=== PATIENT | female | born 1950 | race Hispanic/Latino ===

== ENCOUNTER 2023-07-28 08:18 | Observation (INO) | payer OTHER ==
[2023-07-23 11:38] VITALS: BP 140/71; PULSE 64; RESP 16
[2023-07-23 11:40] LABS: ALBUMIN 3.3 g/dL (3.5-5.0); BILIRUBIN,TOTAL 0.6 mg/dL (0.2-1.0); CREATININE 1.5 mg/dL (0.5-1.0); POTASSIUM 4.6 mmol/L (3.5-5.1); TOTAL PROTEIN, SERUM 8.2 g/dL (6.0-8.3)
[2023-07-28] VITALS (34 sets, daily range): BP systolic 17–145; BP diastolic 57–75; PULSE 58–88; RESP 14–19; O2SAT 94
[~2023-07-28] VITALS: Ht 154.9 cm; Wt 111.5 kg
[2023-07-28] MEDS: 0.9%NACL 1000ML 1,000 ML IV ONE
[~2023-07-28 08:18] MED LIST: AEC81 PO; ALBU6.7H14 IH; ATOR40TA69 PO; EMPA10TA PO; ESCI-8 PO; FLUT1BLS9 IH; LINA5TAB PO; LISI20TA24 PO; OXYB5TAB20 PO; SEMA1PEN3 SQ
[2023-07-28] MEDS ORDERED: FENTANYL CITRATE PF 50 MCG/1 ML 2ML VIAL ONE ×4 (09:59→12:42)
[2023-07-28] MEDS ORDERED: MIDAZOLAM HCL 1 MG/ML 2ML VIAL ONE (10:14)
[2023-07-28] MEDS: CEFAZOLIN SODIUM 2 GM VIAL ONE ×2 (10:20→18:14)
[2023-07-28] MEDS: TRANEXAMIC ACID 1000MG/10ML ONE ×2 (10:30→11:44)
[2023-07-28] MEDS: GENTAMICIN SULFATE 80 MG/2 ML VIAL ONE ×2 (10:34→11:28)
[2023-07-28] MEDS: 0.9%NACL 48.45 ML, ROPIVACAINE 0.5% 49.25ML, EPINEPH 0.5MG KETOROLAC 30MG,CLONIDINE 80MCG IV PRN (10:34)
[2023-07-28] MEDS: CEFAZOLIN SODIUM 1 GM VIAL ONE ×3 (10:34→18:14)
[2023-07-28] MEDS ORDERED: PROPOFOL 10 MG/ML 20ML VIAL IV ONE ×3 (10:55→12:43)
[2023-07-28] MEDS: MEPERIDINE-PF 25 MG/ML SYG ONE (13:57)
[2023-07-28] MEDS ORDERED: DIPHENOXYLATE HCL/ATROPINE 2.5/0.025 MG TAB PO PRN (20:30)
[2023-07-28] MEDS ORDERED: LACTULOSE 20 GM/30 ML UDCUP PO PRN (20:30)
[2023-07-28] MEDS ORDERED: BENZOCAINE/MENTH/CETYLPYRD CL 1 EACH LOZENGE MM PRN (20:30)
[2023-07-28] MEDS ORDERED: MAG/ALUM/SIMETH 30 ML UDCUP PO PRN (20:30)
[2023-07-28] MEDS ORDERED: ACETAMINOPHEN 325 MG TAB PO PRN (20:30)
[2023-07-28] MEDS ORDERED: ALBUTEROL SULFATE IH PRN (21:00)
[2023-07-28] MEDS: HYDROMORPH /0.9% NACL/PF PCA 50 ML IV PRN (22:19)
[2023-07-28] MEDS: ONDANSETRON 4MG INJ IVP PRN (22:21)
[2023-07-28] MEDS: ATORVASTATIN 40 MG TABLET PO SCH (22:21)
[2023-07-28] MEDS: WARFARIN SODIUM 5 MG TAB PO SCH (22:22)
[2023-07-28] MEDS: 0.9%NACL 1000ML 1,000 ML IV SCH (22:30)
[2023-07-29] MEDS ORDERED: POTASSIUM CHLORIDE 20MEQ/100ML 100 ML IV PRN (01:30)
[2023-07-29] MEDS ORDERED: KCL 20 MEQ ERTAB PO PRN (01:30)
[2023-07-29] MEDS ORDERED: DEXTROSE 50%-WATER 50 ML DISP.SYRIN IV PRN (01:30)
[2023-07-29] MEDS ORDERED: POTASSIUM CHLORIDE 10% ELIXIR 20 MEQ/15 ML UDCUP PO PRN (01:30)
[2023-07-29] MEDS ORDERED: GLUCAGON 1MG KIT 1 MG ML IM PRN (01:30)
[2023-07-29] MEDS ORDERED: MAGNESIUM 2GM PREMIX 50ML 50 ML IV PRN (01:30)
[2023-07-29] MEDS: CEFAZOLIN SODIUM 2 GM VIAL IVPB SCH (02:08)
[2023-07-29 03:53] VITALS: BP 150/74; PULSE 77; RESP 18
[2023-07-29 04:19] LABS: HEMATOCRIT 30.9 % (36-48); MEAN CORPUSCULAR HEMOGLOBIN 27.6 pg (27.0-33.0); MEAN CORPUSCULAR HGB CONC 30.7 g/dL (32.0-36.0); MEAN CORPUSCULAR VOLUME 89.8 fL (79-99); PLATELET COUNT (AUTO) 158 K/uL (130-400); RED BLOOD CELL COUNT(AUTO) 3.44 MIL/uL (4.00-5.50); RED CELL DISTRIBUTION WIDTH 16.1 % (11.0-15.5); WHITE BLOOD COUNT (AUTO) 6.2 K/uL (4.8-10.8)
[2023-07-29 04:28] LABS: HEMOGLOBIN A1C 6.1 % (4.0-6.0)
[2023-07-29 04:31] LABS: INR 0.94 (0.85-1.15); PROTHROMBIN TIME 11.1 SEC (9.6-11.6)
[2023-07-29 04:41] LABS: CREATININE 1.2 mg/dL (0.5-1.0); POTASSIUM 4.3 mmol/L (3.5-5.1)
[2023-07-29] MEDS: INSULIN HUMULIN R 100 UNIT/ML 3ML SQ SCH (07:30)
[2023-07-29 08:15] VITALS: BP 103/49; PULSE 76; RESP 18
[2023-07-29] MEDS: FAMOTIDINE 20MG TAB PO SCH (08:46)
[2023-07-29] MEDS: LINAGLIPTIN 5 MG TABLET PO SCH (08:46)
[2023-07-29] MEDS: EMPAGLIFLOZIN 10MG TABLET PO SCH (08:47)
[2023-07-29] MEDS: ASPIRIN 81 MG EC TAB PO SCH (08:47)
[2023-07-29] MEDS: CITALOPRAM 20 MG TABLET PO SCH (08:47)
[2023-07-29] MEDS: OXYBUTYNIN CHLORIDE 5 MG TABLET PO SCH (08:47)
[2023-07-29] MEDS: LISINOPRIL 20 MG TABLET PO SCH (08:48)
[2023-07-29] MEDS: SALMETEROL IH SCH (09:00)
[2023-07-29] MEDS: FLUTICASONE PROPION IH SCH (09:00)
[2023-07-29] MEDS ORDERED: ACETAMINOPHEN 325 MG TAB PO PRN (09:00)
[2023-07-29] MEDS ORDERED: NON-FORMULARY MEDICATION 1 EACH (Escitalopram Oxalate 10 MG) PO SCH (09:00)
[2023-07-29] MEDS: TRAMADOL HCL 50 MG TABLET PO PRN (10:22)
[2023-07-29 11:58] VITALS: BP 134/65; PULSE 78; RESP 17
[2023-07-29 16:21] VITALS: BP 134/69; PULSE 83; RESP 17
[2023-07-29] MEDS: WARFARIN SODIUM 2 MG TAB PO SCH (18:47)
[2023-07-29 20:00] VITALS: BP 108/63; PULSE 86; RESP 14; O2SAT 90
[2023-07-29 23:51] VITALS: BP 140/68; PULSE 95; RESP 16
[2023-07-30] VITALS (9 sets, daily range): BP systolic 83–127; BP diastolic 50–62; PULSE 74–101; RESP 14–17; O2SAT 93–95
[2023-07-30 04:18] LABS: HEMATOCRIT 28.7 % (36-48); MEAN CORPUSCULAR HEMOGLOBIN 27.8 pg (27.0-33.0); MEAN CORPUSCULAR HGB CONC 31.4 g/dL (32.0-36.0); MEAN CORPUSCULAR VOLUME 88.6 fL (79-99); RED BLOOD CELL COUNT(AUTO) 3.24 MIL/uL (4.00-5.50); WHITE BLOOD COUNT (AUTO) 7.1 K/uL (4.8-10.8)
[2023-07-30 04:31] LABS: PROTHROMBIN TIME 11.8 SEC (9.6-11.6)
[2023-07-30 04:39] LABS: CREATININE 1.3 mg/dL (0.5-1.0); POTASSIUM 4.1 mmol/L (3.5-5.1)
[2023-07-31 04:00] VITALS: BP 98/55; PULSE 77; RESP 12
[2023-07-31 04:34] LABS: HEMATOCRIT 25.9 % (36-48); MEAN CORPUSCULAR HEMOGLOBIN 27.7 pg (27.0-33.0); MEAN CORPUSCULAR HGB CONC 30.9 g/dL (32.0-36.0); MEAN CORPUSCULAR VOLUME 89.6 fL (79-99); RED BLOOD CELL COUNT(AUTO) 2.89 MIL/uL (4.00-5.50); RED CELL DISTRIBUTION WIDTH 16.4 % (11.0-15.5); WHITE BLOOD COUNT (AUTO) 6.3 K/uL (4.8-10.8)
[2023-07-31 04:48] LABS: INR 1.02 (0.85-1.15)
[2023-07-31 04:57] LABS: CREATININE 1.7 mg/dL (0.5-1.0); POTASSIUM 4.1 mmol/L (3.5-5.1)
[2023-07-31 08:00] VITALS: BP 99/69; PULSE 61; RESP 14
[2023-07-31 08:30] VITALS: O2SAT 90
[2023-07-31 12:00] VITALS: BP 114/61; PULSE 73; RESP 16
[2023-07-31 16:00] VITALS: BP 107/55; PULSE 79; RESP 16
[2023-07-31] MEDS: WARFARIN SODIUM 2 MG TAB PO ONE (17:03)
[2023-07-31 19:27] VITALS: BP 144/53; PULSE 82; RESP 20
[2023-08-04] MEDS ORDERED: SEMAGLUTIDE 1 MG SQ SCH (09:00)
== END 2023-07-31 20:57 ==
LOC: DAH 08:18 → DAHIP 08:19 → 4AH 18:50
PROVIDERS: ADMIT Orthopaedic Surgery; ATTEND Orthopaedic Surgery
DX: M17.12 Unilateral primary osteoarthritis, left knee (principal); I95.9 Hypotension, unspecified; I12.9 Hypertensive chronic kidney disease with stage 1 through stage 4 chronic kidney disease, or unspecified chronic kidney disease; E11.22 Type 2 diabetes mellitus with diabetic chronic kidney disease; N18.30 Chronic kidney disease, stage 3 unspecified; E78.5 Hyperlipidemia, unspecified; E66.01 Morbid (severe) obesity due to excess calories; G47.33 Obstructive sleep apnea (adult) (pediatric); G89.4 Chronic pain syndrome; I25.10 Atherosclerotic heart disease of native coronary artery without angina pectoris; J44.9 Chronic obstructive pulmonary disease, unspecified; F32.9 Major depressive disorder, single episode, unspecified; Z79.01 Long term (current) use of anticoagulants; Z95.0 Presence of cardiac pacemaker; Z96.652 Presence of left artificial knee joint; Z79.899 Other long term (current) drug therapy
CPT/HCPCS: 80053; 36415 ×4; 87641; 27447; 96365; 96366 ×2; 96375; 82948 ×15; 97012; 97116 ×5; 96368; 83036; 80061; 80048 ×3; 85027 ×3; 85610 ×3; 97530 ×5; 96361 ×2; 85014; 85018; 36430; 86850; 86900; 86901; 86923; A6260; G0378 ×71; G0379; A4510; A4663; J7030 ×3; A4215 ×2; A4649 ×4; J3010 ×3; J0690 ×6; J3490 ×2; J1580 ×2; J2250; J2704 ×3; J2405; J2175; A6223; C1763 ×2; C1776; A5120; A4223; A4222; A4221; A6450; P9016